=== PATIENT | male | born 1985 | race Caucasian/White ===

== ENCOUNTER 2016-12-18 00:03 | Emergency (ER) | payer OTHER ==
[2016-12-18 00:09] VITALS: BP 140/76; BMI 24.5
--- NOTE | 2016-12-18 00:30 | DR.GENAD ---
HPI - PCP Primary Care Physician: ZACKERY - Complaint/Symptoms Chief Complaint Doctors Comments: RUQ pain radiating to back. Pain 10, aggravated by pressure, sharp Chief Complaint:: RUQ PAIN, N/V, SOMETIMES IT HURTS BETWEEN SHOULDER BLADES . DECREASED APPETIT. BEEN GOING ON FOR ABOUT A MONTH. Self Treatment fo Chief Complaint: TYLENOL - Source History Provided: Patient - Mode of Arrival Mode of Arrival: Ambulatory - Timing Onset of Chief Complaint: 12/18/16 PMH - PMH Past Medical History: Yes Past Medical History: Hypertension Past Medical History Comment: Past Surgical History: Yes Surgical History: Appendectomy - Family History History of Family Medical Conditions: Yes Family Medical History: Diabetes Mellitus, Cancer, [place], Coronary Artery Disease, Hypertension - Social History Does patient currently use any type of tobacco product: No Have you used tobacco products in the last 12 months: No Type of Tobacco Use: None Does any household member use tobacco: No Alcohol Use: None Do you use any recreational Drugs:: No Lives Where: Home - infectious screening Have you traveled outside the country in the last 6 months?: No Isolation: Standard ROS - Review of Systems Eyes: No Symptoms Reported ENTM: No Symptoms Reported Respiratoy: No Symptoms Reported Cardiovascular: No Symptoms Reported Gastrointestinal/Abdominal: No Symptoms Reported Genitourinary: No Symptoms Reported Neurological: No Symptoms Reported Musculoskeletal: No Symptoms Reported Integumentary: No Symptoms Reported Hematologic/Lymphatic: No Symptoms Reported Endocrine: No Symptoms Reported Psychiatric: No Symptoms Reported All Other Systems: Reviewed and Negative PE - Vital Signs Vitals: Temperature 98.0 F Pulse Rate 81 Respiratory Rate 16 Blood Pressure [Left Arm] 110/80 Blood Pressure [Right Arm] 123/43 Blood Pressure 140/76 O2 Sat by Pulse Oximetry 98 - General Limitations: No Limitations General Appearance: Alert, In No Apparent Distress - Head Head Exam: Normal Inspection, Atraumatic - Eyes Eye exam: Normal Appearance, PERRL, EOMI - ENT ENT Exam: Normal Exam External Ear Exam: Normal External Inspection TM/Canal Exam: Bilateral Normal Nose Exam: Normal Nose Exam, Sinus Tenderness Mouth Exam: Normal Inspection, Drooling Throat Exam: Normal Inspection - Neck Neck Exam: Normal Inspection - Chest Chest Inspection: Normal Inspection - Respiratory Respiratory Exam: Normal Lung Sounds Bilat Respiratory Exam: Bilateral Clear to Auscultation - Cardiovascular Cardiovascular Exam: Regular Rate, Normal Rhythm - Abdominal Exam Abdominal Exam: Normal Inspection Abdominal Tenderness: RUQ, RLQ, Diffuse - Extremities Extremities Exam: Normal Inspection - Back Back Exam: Normal Inspection, Full ROM - Neurologic Neurological Exam: Alert, Oriented X3, CN II-XII Intact - Psychiatric Psychiatric Exam: Normal Affect, Normal Mood - Skin Skin Exam: Warm, Dry, Intact Course - Reevaluation 1st: Unchanged ROR - Labs Reviewed Result Diagrams: 12/18/16 00:50 12/18/16 00:50 Laboratory: WBC 9.2 X10^3/uL (3.6-10.0) 12/18/16 00:50 RBC 4.59 X10^6/uL (4.7-6.0) L 12/18/16 00:50 Hgb 14.2 g/dL (13.5-18.0) 12/18/16 00:50 Hct 41.2 % (42.0-54.0) L 12/18/16 00:50 MCV 89.7 fL (80.0-100.0) 12/18/16 00:50 MCH 30.9 pg (27.0-34.0) 12/18/16 00:50 MCHC 34.4 g/dL (33.0-35.0) 12/18/16 00:50 RDW 13.2 % (11.6-16.5) 12/18/16 00:50 Plt Count 253 X10^3/uL (150.0-450.0) 12/18/16 00:50 MPV 8.2 fL (7.4-11.0) 12/18/16 00:50 Neut % 38.7 % (42.0-75.0) L 12/18/16 00:50 Lymph % 48.9 % (21.0-51.0) 12/18/16 00:50 [place] % 9.4 % (0.0-13.0) 12/18/16 00:50 Eos % 2.2 % (0.9-2.9) 12/18/16 00:50 Baso % 0.8 % (0.2-1.0) 12/18/16 00:50 Neut # 3.6 x10^3/uL (2.2-4.8) 12/18/16 00:50 Lymph # 4.5 X10^3/uL (1.3-2.9) H 12/18/16 00:50 [place] # 0.9 x10^3/uL (0.3-0.8) H 12/18/16 00:50 Eos # 0.2 x10^3/uL (0.0-0.2) 12/18/16 00:50 Baso # 0.1 X10^3/uL (0.0-0.1) 12/18/16 00:50 Absolute Nucleated RBC 1.7 /100WBC 12/18/16 00:50 Sodium 141 mmol/L (136-145) 12/18/16 00:50 Corrected Sodium TNP 12/18/16 00:50 Potassium 3.6 mmol/L (3.5-5.1) 12/18/16 00:50 Chloride 107 mmol/L (98-107) 12/18/16 00:50 Carbon Dioxide 23.4 mmol/L (21-32) 12/18/16 00:50 BUN 14 mg/dL (7-18) 12/18/16 00:50 Creatinine 1.14 mg/dL (0.70-1.30) 12/18/16 00:50 Est GFR (MDRD) Af Amer > 60 (>60) 12/18/16 00:50 Est GFR (MDRD) Non-Af > 60 (>60) 12/18/16 00:50 Glucose 110 mg/dL (65-99) H 12/18/16 00:50 Calcium 7.7 mg/dL (8.5-10.1) L 12/18/16 00:50 Corrected Calcium TNP 12/18/16 00:50 Total Bilirubin 0.50 mg/dL (0.2-1.0) 12/18/16 00:50 AST 40 Units/L (15-37) H 12/18/16 00:50 ALT 44 Units/L (12-78) 12/18/16 00:50 Alkaline Phosphatase 80 Units/L (46-116) 12/18/16 00:50 C-Reactive Protein < 0.50 mg/L (0-3.0) 12/18/16 00:50 Total Protein 7.4 g/dL (6.4-8.2) 12/18/16 00:50 Albumin 3.8 g/dL (3.4-5.0) 12/18/16 00:50 Globulin 3.6 g/dL (2.5-4.5) 12/18/16 00:50 Albumin/Globulin Ratio 1.1 Ratio (1.1-2.1) 12/18/16 00:50 Amylase 58 Units/L (25-115) 12/18/16 00:50 Lipase 155 Units/L (73-393) 12/18/16 00:50 - XRAY XRAY Interpreted by: Radiologist (CT Abd/pel: There is intrahepatic ductal and common bile duct dilatation to the level of the pancreatic head. No radiopaque stone or mass is identified. A follow up MRI and MRCP using pancreas protocol could be obtained for further evaluation. There are multiple nonobstructing bilaterla renal calculi.) - Diagnosis Discharge Problem: Intrahepatic bile duct dilation, Bilateral kidney stones - Discharge Plan Condition: Stable - Follow ups/Referrals Follow ups/Referrals: ERIKA VIZCARRA [Primary Care Provider] - 3 days - Instructions
[2016-12-18] MEDS ORDERED: MORPHINE SULFATE INJ 4 MG IVP ONE (00:43)
[2016-12-18] MEDS ORDERED: ZOFRAN INJ 4 MG VIAL IVP ONE (00:45)
[2016-12-18] MEDS ORDERED: NS 1000 ML 1,000 ML ONE (00:46)
[2016-12-18] MEDS ORDERED: MORPHINE SULFATE INJ 4 MG ONE (00:47)
[2016-12-18] MEDS ORDERED: ZOFRAN INJ 4 MG VIAL ONE (00:53)
[2016-12-18 00:58] LABS: EOSINOPHILS # (AUTO) 0.2 x10^3/uL (0.0-0.2)
[2016-12-18] MEDS ORDERED: NS 1000 ML 1,000 ML IV SCH (01:00)
[2016-12-18 01:14] LABS: ALBUMIN 3.8 g/dL (3.4-5.0); ALKALINE PHOSPHATASE 80 Units/L (46-116); BLOOD UREA NITROGEN 14 mg/dL (7-18); C-REACTIVE PROTEIN < 0.50 mg/L (0-3.0); CALCIUM 7.7 mg/dL (8.5-10.1); CARBON DIOXIDE 23.4 mmol/L (21-32); CHLORIDE 107 mmol/L (98-107); CREATININE 1.14 mg/dL (0.70-1.30); GLUCOSE 110 mg/dL (65-99); SODIUM 141 mmol/L (136-145); eGFR BLACK RACES > 60 (>60); eGFR NON BLACK RACES > 60 (>60)
[2016-12-18 01:16] LABS: BASOPHILS # (AUTO) 0.1 X10^3/uL (0.0-0.1); LYMPHOCYTES # (AUTO) 4.5 X10^3/uL (1.3-2.9); MEAN CORPUSCULAR VOLUME 89.7 fL (80.0-100.0); MEAN PLATELET VOLUME 8.2 fL (7.4-11.0); NEUTROPHILS # (AUTO) 3.6 x10^3/uL (2.2-4.8)
[2016-12-18 01:21] LABS: BASOPHILS % (AUTO) 0.8 % (0.2-1.0); EOSINOPHILS % (AUTO) 2.2 % (0.9-2.9); HEMATOCRIT 41.2 % (42.0-54.0); HEMOGLOBIN 14.2 g/dL (13.5-18.0); LYMPHOCYTES % (AUTO) 48.9 % (21.0-51.0); MEAN CORPUSCULAR HEMOGLOBIN 30.9 pg (27.0-34.0); MEAN CORPUSCULAR HGB CONC 34.4 g/dL (33.0-35.0); MONOCYTES # (AUTO) 0.9 x10^3/uL (0.3-0.8); MONOCYTES % (AUTO) 9.4 % (0.0-13.0); NEUTROPHILS % (AUTO) 38.7 % (42.0-75.0); PLATELET COUNT 253 X10^3/uL (150.0-450.0); RED BLOOD COUNT 4.59 X10^6/uL (4.7-6.0); RED CELL DISTRIBUTION WIDTH 13.2 % (11.6-16.5); WHITE BLOOD COUNT 9.2 X10^3/uL (3.6-10.0)
[2016-12-18 01:33] LABS: AMYLASE 58 Units/L (25-115); LIPASE 155 Units/L (73-393)
[2016-12-18 01:39] LABS: ALANINE AMINOTRANSFERASE 44 Units/L (12-78); ASPARTATE AMINO TRANSFERASE 40 Units/L (15-37); TOTAL PROTEIN 7.4 g/dL (6.4-8.2)
[2016-12-18] MEDS ORDERED: DILAUDID INJ IVP ONE (01:44)
[2016-12-18] MEDS ORDERED: DILAUDID INJ ONE (01:45)
[2016-12-18] MEDS ORDERED: NS 100 ML IV 100 ML IV ONE (01:47)
--- NOTE | 2016-12-18 02:21 | CT ---
EXAM: CT ABDOMEN AND PELVIS WITH CONTRAST INDICATION: Abdominal pain COMPARISION: No priors available for comparison TECHNIQUE: Axial CT examination of the abdomen and pelvis was performed with intravenous contrast. The patient received intravenous contrast without adverse reaction. Coronal and sagittal reconstructions were c reated using the axial data. FINDINGS: The lung bases are clear. The liver, spleen, pancreas, hand adrenal glands are normal. There are renuka ateral nonobstructing renal calculi. The gallbladder appears unremarkable. There is dilatation of th e intrahepatic bile ducts and common bile duct to the level of the pancreatic head. The aorta and i nferior vena cava are normal in caliber. The bowel loops are nonobstructed. No abnormal mass, lymphadenopathy, or fluid collection. Urinary bladder is normal. The appendix has been removed. The regional skeleton is intact. IMPRESSION: There is intrahepatic ductal and common bile duct dilatation to the level of the pancreatic head. No radiopaque stone or mass is identified. A followup MRI and MRCP using pancreas protocol could be ob tained for further evaluation. There are multiple nonobstructing bilateral renal calculi. Reported By:
== END 2016-12-18 03:05 | disposition home or self-care (01) ==
LOC: ER 00:03
DX: K83.8 Other specified diseases of biliary tract (principal); N20.0 Calculus of kidney; R10.11 Right upper quadrant pain
CPT/HCPCS: 36415; 74177; 80053; 82150; 83690; 85025; 86140; 96365; 96367; 96374; 96375; 99283; A4222; J2270; J2405

== ENCOUNTER 2017-10-24 00:50 | Observation (INO) ==
[2017-10-24 01:09] LABS: EOSINOPHILS # (AUTO) 0.3 x10^3/uL (0.0-0.2)
[2017-10-24 01:23] LABS: NEUTROPHILS # (AUTO) 4.1 x10^3/uL (2.2-4.8); WHITE BLOOD COUNT 10.5 X10^3/uL (3.6-10.0)
[2017-10-24 01:38] LABS: BASOPHILS # (AUTO) 0.1 X10^3/uL (0.0-0.1); EOSINOPHILS % (AUTO) 2.6 % (0.9-2.9); HEMATOCRIT 42.8 % (42.0-54.0); HEMOGLOBIN 15.4 g/dL (13.5-18.0); LYMPHOCYTES # (AUTO) 5.1 X10^3/uL (1.3-2.9); LYMPHOCYTES % (AUTO) 48.7 % (21.0-51.0); MEAN CORPUSCULAR HEMOGLOBIN 32.4 pg (27.0-34.0); MEAN CORPUSCULAR HGB CONC 35.9 g/dL (33.0-35.0); MEAN CORPUSCULAR VOLUME 90.3 fL (80.0-100.0); MEAN PLATELET VOLUME 8.5 fL (7.4-11.0); MONOCYTES % (AUTO) 9.2 % (0.0-13.0); NEUTROPHILS % (AUTO) 38.5 % (42.0-75.0); PLATELET COUNT 383 X10^3/uL (150.0-450.0); RED BLOOD COUNT 4.74 X10^6/uL (4.7-6.0); RED CELL DISTRIBUTION WIDTH 13.5 % (11.6-16.5)
[2017-10-24] MEDS ORDERED: ZOFRAN INJ 4 MG VIAL ONE (01:39)
[2017-10-24] MEDS ORDERED: PHENERGAN INJ 25 MG IV PRN ×2 (01:39→03:37)
[2017-10-24] MEDS ORDERED: MORPHINE SULFATE INJ 4 MG IVP ONE (01:39)
[2017-10-24] MEDS ORDERED: MORPHINE SULFATE INJ 4 MG ONE (01:42)
--- NOTE | 2017-10-24 01:44 | DR.CP ---
HPI - Time Seen Time seen: 01:00 - PCP Primary Care Physician: ZACKERY - HPI Comment HPI Comment: PAIN ASSOCIATED WITH N/V, WEAKNESS AND SOB. S/L NTG DID NOT RELIEF PAIN. TOOK 2TABS ASA 325MG BEFORE COMING. PATIENT HAVE HAD SEVERAL DIARRHEA STOOL WELL. NO FEVER OR URI SYMPTOMS. HISTORY CARDIAC STENT IN THE PAST. - Complaint Chief Complaint Doctor Comments: CHEST PAIN RADIATING TO LT ARM FOR SEVERAL HOURS. Chief Complaint:: CHEST PAIN, SHORTNESS OF BREATH, LEFT HAND NUMBNESS. O/S 1730 YESTERDAY, HAS TAKEN 5 NITROGLYCERIN AND CHEWED ASPIRIN 325MG. Self Treatment fo Chief Complaint: NITROGLYCERIN 0.4MG SL TIMES 5. ASA 325MG PO (CHEWED). BLOOD PRESSURE MEDS - Reviewed Nurses Notes Review: Yes - Source History Provided: Patient - Mode of Arrival Mode of Arrival: Ambulatory - Timing Onset of Chief Complaint: 10/23/17 Came on: Suddenly Pain: Present Now - Duration Duration: Constant Duration: Hours - Location Location of Chest Pain: Left, Chest Chest Pain Radiation Location: Left Hand - Context Onset: At rest Cardiac Risk Factors: HTN PE Risk Factors: None History of: Similar pain in the past Prehospital Care: SL Nitro, ASA - Quality Quality: Heavy - Severity Severity: Moderate - Modifying Factors Worsens: Nothing Impoves: Nothing - Associated Signs and Symptoms Associated Signs and Symptoms: Shortness of Breath, Other PMH - PMH Past Medical History: Yes Past Medical History: Hypertension Past Surgical History: Yes Surgical History: Appendectomy - Family History History of Family Medical Conditions: Yes Family Medical History: Diabetes Mellitus, Cancer, [place], Coronary Artery Disease, Hypertension - Social History Does patient currently use any type of tobacco product: No Have you used tobacco products in the last 12 months: No Type of Tobacco Use: None Does any household member use tobacco: No Alcohol Use: None Do you use any recreational Drugs:: No Lives With: Alone Lives Where: Home - infectious screening Have you traveled outside the country in the last 6 months?: No Isolation: Standard ROS - Review of Systems Constitutional: Weakness, Fatigue. negative: Chills, Fever Eyes: No Symptoms Reported. negative: Eye Pain, Discharge ENTM: No Symptoms Reported. negative: Ear Pain, Nose Discharge, Nose Congestion , Throat Pain Respiratoy: Short of Breath. negative: Productive Cough, Non-Productive Cough, Wheezing, Hemoptysis Cardiovascular: Chest Pain Gastrointestinal/Abdominal: Abdominal Pain, Diarrhea, Nausea, Vomiting Genitourinary: negative: Dysuria, Frequency, Hematuria Neurological: Weakness, Dizziness Musculoskeletal: Muscle Pain Integumentary: No Symptoms Reported Hematologic/Lymphatic: No Symptoms Reported Endocrine: No Symptoms Reported All Other Systems: Reviewed and Negative PE - General Limitations: No Limitations General Appearance: Alert - Head Head Exam: Normal Inspection - Eyes Eye exam: Normal Appearance - ENT ENT Exam: Normal External Ear Exam - Chest Chest Inspection: Symmetric Chest Wall Rise - Respiratory Respiratory Exam: Normal Lung Sounds Bilat Respiratory Exam: Bilateral Clear to Auscultation - Cardiovascular Cardiovascular Exam: Regular Rate, Normal Rhythm, Normal Heart Sounds Pulse: Normal, Radial, Femoral Edema: Normal - Abdominal Exam Abdominal Exam: Normal Bowel Sounds, Soft. negative: Tenderness - Extremities Extremities Exam: Normal Inspection - Back Back Exam: Normal Inspection - Neurologic Neurological Exam: Alert, Oriented X3 - Psychiatric Psychiatric Exam: Normal Affect, Normal Mood - Skin Skin Exam: Normal Color - Vitals Vitals: Pulse Rate [Apical] 87 Pulse Rate 89 Respiratory Rate 24 Blood Pressure [Left Arm] 110/80 Blood Pressure [Right Arm] 123/90 Blood Pressure 125/92 O2 Sat by Pulse Oximetry 98 MDM - Differential Diagnosis Differential Diagnosis: Angina, Cholelithasis, CHF, Costochondritis, Esophageal Reflux/Spasm, Gastritis, Myocardial Infarction, Pericarditis, Pleuritis, Pancreatitis, Pneumonia, Pneumothorax Course - Treatment Treatment: SEE ORDERS. IV MORPHIN AND PHENERGAN IN ED. - Reevaluation 1st: Improved (PAIN DECREASING.) - Education/Counseling Education/Counseling: Patient, Education Educated On: Diagnosis, Needs for Follow Up ROR - Labs Reviewed Result Diagrams: 10/24/17 01:15 10/24/17 01:15 - XRAY XRAY Interpreted by: Radiologist XRAY Findings: REPORT DISCUSS WITH PATIENT. - EKG Rhythm: NSR (EKG NOTED.) - Labs Reviewed Laboratory: WBC 10.5 X10^3/uL (3.6-10.0) H 10/24/17 01:15 RBC 4.74 X10^6/uL (4.7-6.0) 10/24/17 01:15 Hgb 15.4 g/dL (13.5-18.0) 10/24/17 01:15 Hct 42.8 % (42.0-54.0) 10/24/17 01:15 MCV 90.3 fL (80.0-100.0) 10/24/17 01:15 MCH 32.4 pg (27.0-34.0) 10/24/17 01:15 MCHC 35.9 g/dL (33.0-35.0) H 10/24/17 01:15 RDW 13.5 % (11.6-16.5) 10/24/17 01:15 Plt Count 383 X10^3/uL (150.0-450.0) 10/24/17 01:15 MPV 8.5 fL (7.4-11.0) 10/24/17 01:15 Neut % (Auto) 38.5 % (42.0-75.0) L 10/24/17 01:15 Lymph % (Auto) 48.7 % (21.0-51.0) 10/24/17 01:15 [place] % (Auto) 9.2 % (0.0-13.0) 10/24/17 01:15 Eos % (Auto) 2.6 % (0.9-2.9) 10/24/17 01:15 Baso % (Auto) 1.0 % (0.2-1.0) 10/24/17 01:15 Neut # (Auto) 4.1 x10^3/uL (2.2-4.8) 10/24/17 01:15 Lymph # (Auto) 5.1 X10^3/uL (1.3-2.9) H 10/24/17 01:15 [place] # (Auto) 1.0 x10^3/uL (0.3-0.8) H 10/24/17 01:15 Eos # (Auto) 0.3 x10^3/uL (0.0-0.2) H 10/24/17 01:15 Baso # (Auto) 0.1 X10^3/uL (0.0-0.1) 10/24/17 01:15 Absolute Nucleated RBC 0.3 /100WBC 10/24/17 01:15 INR Target Range - 10/24/17 01:15 INR 0.85 (0.8-1.3) 10/24/17 01:15 APTT 31.0 SECONDS (22.9-36.5) 10/24/17 01:15 PTT Comment - 10/24/17 01:15 H. pylori IgG Antibody Negative (NEGATIVE) 10/24/17 01:15 - Diagnosis Discharge Problem: Chest pain Qualifiers: Chest pain type: precordial pain Qualified Code(s): R07.2 - Precordial pain Abdominal pain Qualifiers: Abdominal location: generalized Qualified Code(s): R10.84 - Generalized abdominal pain - Discharge Plan Condition: Stable
[2017-10-24] MEDS: NS 1000 ML 1,000 ML IV SCH ×3 (01:53→17:44)
[2017-10-24 02:48] LABS: CHLORIDE 99 mmol/L (98-107); SODIUM 133 mmol/L (136-145)
[2017-10-24 02:49] LABS: BLOOD UREA NITROGEN 11 mg/dL (7-18); CARBON DIOXIDE 12.4 mmol/L (21-32)
[2017-10-24 02:50] LABS: COR NA(FOR HYPERGLY) 136 mmol/L (136-145)
[2017-10-24 02:51] LABS: ASPARTATE AMINO TRANSFERASE 90 Units/L (15-37)
[2017-10-24 02:53] LABS: ALKALINE PHOSPHATASE 135 Units/L (46-116)
[2017-10-24 02:54] LABS: MAGNESIUM 1.7 mg/dL (1.7-2.9)
[2017-10-24 02:55] LABS: CREATINE KINASE MB 0.5 ng/mL (0-4.0); TROPONIN I 0.19 ng/mL (0-1.5)
--- NOTE | 2017-10-24 03:04 | RAD ---
Chest portable Indication: Chest pain Comparison July 08, 2016 Findings: There is minimal left base atelectasis and/or developing bronchitis changes. There is no ve nous congestion obvious effusion or pneumothorax. The heart and mediastinum remain normal. The skelet on is intact. Impression: Minimal left base airspace changes described above. Reported By:
--- NOTE | 2017-10-24 03:38 | CT ---
CT abdomen pelvis without contrast Indication: Abdominal pain and chest pain Findings: Comparison December 18, 2016 the lung bases and cardiac chambers are normal. There is fatty a ppearing liver. The gallbladder pancreas and spleen are negative. Bilateral kidneys demonstrate nonob structing calculi. The ureters are patent. The urinary bladder is clear. The small and large bowel ar e unremarkable. There is mild stool retained throughout the colon. The retroperitoneum and lower pelv ic recess are clear. The urinary bladder is nondistended. The skeleton and vascular structures are no rmal. Impression: 1. Nonobstructive bilateral renal calculi. 2. Mild fatty changes of the liver Reported By:
[2017-10-24 03:53] LABS: ALANINE AMINOTRANSFERASE 54 Units/L (12-78); CALCIUM 8.6 mg/dL (8.5-10.1); CKMB % 0.8 % (<4); CREATINE KINASE 62.4 Units/L (39-308); CREATININE 0.91 mg/dL (0.70-1.30); TOTAL PROTEIN 6.8 g/dL (6.4-8.2); eGFR NON BLACK RACES > 60 (>60)
[2017-10-24 03:59] LABS: ALBUMIN 4.1 g/dL (3.4-5.0)
[2017-10-24] MEDS: NITRO-BID OINT 2% Multi-Dose tube TD SCH ×4 (04:03→21:55)
[2017-10-24] MEDS: MORPHINE SULFATE INJ 4 MG IVP PRN ×5 (04:04→21:45)
[2017-10-24 04:21] VITALS: BMI 26.4
[2017-10-24 07:43] LABS: CKMB % 1.9 % (<4); CREATINE KINASE 54 Units/L (39-308); CREATINE KINASE MB < 1.0 ng/mL (0-4.0); TROPONIN I < 0.02 ng/mL (0-1.5)
[2017-10-24] MEDS ORDERED: TOPROL XL PO ONE ×2 (08:14→20:32)
[2017-10-24] MEDS: TOPROL XL PO SCH ×2 (08:45→20:55)
[2017-10-24] MEDS ORDERED: METOPROLOL SUCCINATE 200 MG PO SCH (09:00)
[2017-10-24] MEDS: NORCO 7.5/325 MG TAB PO PRN (10:57)
[2017-10-24] MEDS ORDERED: NORVASC TAB 2.5 MG ONE (11:05)
[2017-10-24] MEDS: NORVASC TAB 2.5 MG PO SCH (11:14)
[2017-10-24] MEDS: ECOTRIN TAB 325 MG PO SCH (11:14)
[2017-10-24 13:45] LABS: CREATINE KINASE 50 Units/L (39-308); CREATINE KINASE MB < 1.0 ng/mL (0-4.0); TROPONIN I < 0.02 ng/mL (0-1.5)
[2017-10-24] MEDS: TORADOL 30 MG VIAL IVP SCH ×2 (15:28→20:56)
[2017-10-24 18:19] LABS: CKMB % 1.9 % (<4); CREATINE KINASE 53 Units/L (39-308); CREATINE KINASE MB < 1.0 ng/mL (0-4.0); TROPONIN I < 0.02 ng/mL (0-1.5)
[2017-10-24] MEDS ORDERED: CRESTOR TAB 10 MG PO SCH (21:00)
[2017-10-24 21:17] LABS: CKMB % 1.8 % (<4); CREATINE KINASE 57 Units/L (39-308); CREATINE KINASE MB < 1.0 ng/mL (0-4.0); TROPONIN I < 0.02 ng/mL (0-1.5)
[2017-10-24] MEDS ORDERED: NITRO-BID OINT 2% UD (E.R. USE ONLY) ONE (21:32)
--- NOTE | 2017-10-24 22:20 | DR.H&P ---
H&P - History & Physical for Day of: H&P Date: 10/24/17 - Chief Complaint Chief Complaint: CHEST PAIN - History of Present Illness History of Present Illness: IS A 32 YEAR OLD PATIENT OF OURS WHO PRESENTED TO THE EMERGENCY ROOM WITH COMPLAINTS OF CHEST PAIN THAT RADIATES TO THE LEFT ARM. HE REPORTS THAT PAIN STARTED SEVERAL HOURS AGO. ASSOCIATED SYMPTOMS INCLUDE SHORTNESS OF BREATH, LEFT HAND NUMBNESS, NAUSEA, VOMITING, WEAKNESS, AND DIARRHEA. HE DENIES FEVER OR URI SYMPTOMS. HE REPORTS TAKING NITROGLYCERIN 0.4MG SL X 5 AND ASA 325MG PO X 1 WITH NO RELIEF OF PAIN. ON ARRIVAL, VITALS WERE 97.7-85-18-96%-135/59. LABS WERE OBTAINED. ABNORMAL LAB VALUES INCLUDE THE FOLLOWING: WBC 10.5, SODIUM 133, CARBON DIOXIDE 12.4, GLUCOSE 207, AST 90, ALK PHOSPHATASE 135. CARDIAC ENZYMES WITHIN NORMAL LIMITS. CHEST XRAY OBTAINED AND REVEALED MINIMAL LEFT BASE AIRSPACE CHANGES. AN ABD/ PELVIS CT WITHOUT CONTRAST OBTAINED AND REVEALED: Nonobstructive bilateral renal calculi. Mild fatty changes of the liver. EKG REVEALED SINUS RHYTHM WITH HR 86. ST ELEVATION, PROBABLE NORMAL EARLY REPOL PATTERN. HE WAS GIVEN MORPHINE 4MG IV X 1 DOSE AND PHENERGAN 12.5MG X 1 DOSE IN THE ER WITH NO IMPROVEMENT IN SYMPTOMS. HE WAS ADMITTED FOR FURTHER EVALUATION AND TREATMENT. WE PLAN TO OBTAIN SERIAL CARDIAC ENZYMES AND EKGS. OTHERWISE, WE WILL FOLLOW UP WITH AM LABS AND CONTINUE TO MONITOR PATIENT. 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) - Past Surgical History Surgical History: Appendectomy Additional Surgical History: Hernia Repair - Family History Family Medical History: Diabetes Mellitus, Cancer, [place], Coronary Artery Disease, Hypertension - Social History Does patient currently use any type of tobacco product: No Have you used tobacco products in the last 12 months: No Type of Tobacco Use: None Does any household member use tobacco: No Alcohol Use: None Drug Use: None - Medications Home Medications: No Known Drug Allergies Allergy (Verified 10/24/17 01:02) CONTINUE taking the following medications metoprolol succinate 200 mg PO BID 10/24/17 [History] - Review of Systems Constitutional: Weakness Eyes: No Symptoms Reported ENT: No Symptoms Reported Respiratory: Shortness of Breath Cardiovascular: Chest Pain Gastrointestinal: Nausea, Vomiting, Abdominal Pain, Diarrhea Genitourinary: No Symptoms Reported Musculoskeletal: No Symptoms Reported Skin: No Symptoms Reported Neurological: Weakness - Physical Exam Vital Signs: Temperature 97.9 F Pulse Rate [Apical] 75 Pulse Rate 89 Respiratory Rate 18 Blood Pressure [Left Arm] 110/80 Blood Pressure [Right Arm] 100/55 Blood Pressure 125/92 O2 Sat by Pulse Oximetry 2 Oriented: Normal Eyes: Normal Ear: Normal Nose: Normal Throat: Normal Respiratory: Diminished Throughout Cardiovascular: Normal. negative: S3, S4, Murmur, Edema : Normal Auscultation: Bowel Sounds: Normal Palpation: Normal Tenderness: Diffuse, Mild. negative: Rebound, Guarding, Rigidity Skin: Normal Musculoskeletal: Normal Psychiatric: Normal Mood Description: Calm Affect: Normal Speech Pattern: Clear - Assessment/Plan (1) Chest pain, rule out acute myocardial infarction Status: Acute Plan: SERIAL CARDIAC ENZYMES AND EKG, TELEMETRY, MORPHIN 4MG IV Q4H PRN, NITRO PASTE Q6H, CONTINUE TO MONITOR - Allergies Allergies/Adverse Reactions: Allergies Allergy/AdvReac Type Severity Reaction Status Date / Time No Known Drug Allergies Allergy Verified 10/24/17 01:02
[2017-10-25 02:04] LABS: CKMB % 1.8 % (<4); CREATINE KINASE 55 Units/L (39-308); CREATINE KINASE MB < 1.0 ng/mL (0-4.0); TROPONIN I < 0.02 ng/mL (0-1.5)
[2017-10-25] MEDS: NS 1000 ML 1,000 ML IV SCH ×2 (02:28→10:47)
[2017-10-25] MEDS: NITRO-BID OINT 2% Multi-Dose tube TD SCH ×2 (02:28→09:49)
[2017-10-25] MEDS: TORADOL 30 MG VIAL IVP SCH ×2 (02:29→09:23)
[2017-10-25] MEDS ORDERED: NITRO-BID OINT 2% UD (E.R. USE ONLY) ONE (02:29)
[2017-10-25] MEDS: MORPHINE SULFATE INJ 4 MG IVP PRN ×2 (06:00→11:09)
[2017-10-25 06:38] LABS: BASOPHILS # (AUTO) 0.1 X10^3/uL (0.0-0.1); BASOPHILS % (AUTO) 0.7 % (0.2-1.0); EOSINOPHILS # (AUTO) 0.2 x10^3/uL (0.0-0.2); HEMATOCRIT 36.7 % (42.0-54.0); HEMOGLOBIN 13.2 g/dL (13.5-18.0); LYMPHOCYTES # (AUTO) 3.4 X10^3/uL (1.3-2.9); LYMPHOCYTES % (AUTO) 28.7 % (21.0-51.0); MEAN CORPUSCULAR HEMOGLOBIN 32.1 pg (27.0-34.0); MEAN CORPUSCULAR HGB CONC 35.9 g/dL (33.0-35.0); MEAN CORPUSCULAR VOLUME 89.5 fL (80.0-100.0); MEAN PLATELET VOLUME 8.6 fL (7.4-11.0); MONOCYTES # (AUTO) 1.4 x10^3/uL (0.3-0.8); MONOCYTES % (AUTO) 11.3 % (0.0-13.0); NEUTROPHILS # (AUTO) 6.8 x10^3/uL (2.2-4.8); NEUTROPHILS % (AUTO) 57.3 % (42.0-75.0); PLATELET COUNT 270 X10^3/uL (150.0-450.0); RED CELL DISTRIBUTION WIDTH 13.3 % (11.6-16.5); WHITE BLOOD COUNT 11.9 X10^3/uL (3.6-10.0)
[2017-10-25 07:07] LABS: ALANINE AMINOTRANSFERASE 46 Units/L (12-78); ALBUMIN 3.2 g/dL (3.4-5.0); ALKALINE PHOSPHATASE 68 Units/L (46-116); BLOOD UREA NITROGEN 9 mg/dL (7-18); CALCIUM 8.2 mg/dL (8.5-10.1); CHLORIDE 103 mmol/L (98-107); CHOL/HDL RATIO 13.5 (0.0-5.0); CHOLESTEROL 230 mg/dL (0-200); COR CA(FOR HYPOALB) 8.8 mg/dL (8.5-10.1); COR NA(FOR HYPERGLY) 136 mmol/L (136-145); CREATININE 0.75 mg/dL (0.70-1.30); HDL CHOLESTEROL 17 mg/dL (40-60); SODIUM 136 mmol/L (136-145); TOTAL PROTEIN 6.8 g/dL (6.4-8.2); eGFR NON BLACK RACES > 60 (>60)
[2017-10-25 07:21] LABS: ASPARTATE AMINO TRANSFERASE 29 Units/L (15-37)
[2017-10-25 07:30] LABS: TRIGLYCERIDES 1544 mg/dL (0-150)
[2017-10-25 08:25] VITALS: BP 128/60
--- NOTE | 2017-10-25 08:41 | RAD ---
HISTORY: Chest pain. Shortness of breath. Study: AP portable chest Comparison: 10/24/2017 Findings: The lungs are clear. The heart size is normal. No acute bony abnormalities are identified. IMPRESSION: 1. No radiographic evidence of acute cardiopulmonary disease. The minimal subsegmental atelectasis in the left lung base has resolved. Reported By:
[2017-10-25] MEDS: NORCO 7.5/325 MG TAB PO PRN (08:56)
[2017-10-25] MEDS ORDERED: LEVAQUIN PREMIX IV 750 MG 750 MG/150 ML BAG IV SCH (09:00)
[2017-10-25] MEDS ORDERED: NORVASC TAB 2.5 MG ONE (09:19)
[2017-10-25] MEDS ORDERED: TOPROL XL PO ONE (09:20)
[2017-10-25] MEDS: NORVASC TAB 2.5 MG PO SCH (09:23)
[2017-10-25] MEDS: TOPROL XL PO SCH (09:23)
[2017-10-25] MEDS: ECOTRIN TAB 325 MG PO SCH (09:23)
--- NOTE | 2017-11-19 14:24 | DR.CARTERD ---
- Discharge Summary for: Discharge Summary for Date of:: 10/25/17 - Admission Date Date of Admission: 10/24/17 - Admission Diagnoses Admission Diagnosis: (1) Chest pain, rule out acute myocardial infarction (2) Shortness of breath (3) Nausea (4) Left hand numbness - Discharge Date Discharge Date: 10/25/17 - Discharge Diagnoses Discharge Diagnosis: (1) Chest pain, rule out acute myocardial infarction (2) Shortness of breath (3) Nausea (4) Left hand numbness - Hospital Course Hospital Course: DAY ONE, MR. MANE IS A 32 YEAR OLD PATIENT OF OURS WHO PRESENTED TO THE EMERGENCY ROOM WITH COMPLAINTS OF CHEST PAIN THAT RADIATED TO THE LEFT ARM. HE REPORTED THAT PAIN STARTED SEVERAL HOURS PRIOR. ASSOCIATED SYMPTOMS INCLUDED SHORTNESS OF BREATH, LEFT HAND NUMBNESS, NAUSEA, VOMITING, WEAKNESS, AND DIARRHEA. HE DENIED FEVER OR URI SYMPTOMS. HE REPORTED TAKING NITROGLYCERIN 0.4MG SL X 5 AND ASA 325MG PO X 1 WITH NO RELIEF OF PAIN. ON ARRIVAL, VITALS WERE 97.7-85-18-96%-135/59. LABS WERE OBTAINED. ABNORMAL LAB VALUES INCLUDED THE FOLLOWING: WBC 10.5, SODIUM 133, CARBON DIOXIDE 12.4, GLUCOSE 207, AST 90, ALK PHOSPHATASE 135. CARDIAC ENZYMES WITHIN NORMAL LIMITS. CHEST XRAY OBTAINED AND REVEALED MINIMAL LEFT BASE AIRSPACE CHANGES. AN ABD/PELVIS CT WITHOUT CONTRAST OBTAINED AND REVEALED: NONOBSTRUCTIVE BILATERAL RENAL CALCULI; MILD FATTY CHANGES OF THE LIVER. EKG REVEALED SINUS RHYTHM WITH HR 86, ST ELEVATION, PROBABLE NORMAL EARLY REPOL PATTERN. HE WAS GIVEN MORPHINE 4MG IV X 1 DOSE AND PHENERGAN 12.5MG X 1 DOSE IN THE ER WITH NO IMPROVEMENT IN SYMPTOMS. HE WAS ADMITTED FOR FURTHER EVALUATION AND TREATMENT. 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 ON DAY TWO, PATIENT REPORTED HE WAS FEELING BETTER. HE DENIED CHEST PAIN OR SHORTNESS OF BREATH. A FASTING LIPID PANEL REPORTED: TRIGLYCERIDES 1544, CHOLESTEROL 230, LDL CHOL -96, HDL CHOL 17, CHOL/HDL RATIO 13.5. VITAL SIGNS STABLE. LABS WNL. CARDIAC ENZYMES AND EKG'S WERE NORMAL. WE PLANNED FOR DISCHARGE. INSTRUCTIONS FOR MEDICATIONS AND FOLLOW UP WERE DISCUSSED WITH PATIENT AND FAMILY, BOTH VOICED UNDERSTANDING. PATIENT DISCHARGED HOME IN STABLE CONDITION WITH FAMILY. - Discharge Medications Discharge Medications: Home Medication List metoprolol succinate 200 mg PO BID 10/24/17 [History] amlodipine 2.5 mg PO DAILY #30 tab 10/25/17 [Rx] amoxicillin-pot clavulanate [Augmentin] 1 tab PO BID #20 tab 10/25/17 [Rx] aspirin 325 mg PO DAILY #90 tab 10/25/17 [Rx] fenofibric acid (choline) [Trilipix] 135 mg PO HS #30 cap 10/25/17 [Rx] rosuvastatin [Crestor] 20 mg PO HS #30 tab 10/25/17 [Rx] Prescriptions: amlodipine Juan Diego Casarez amoxicillin-pot clavulanate [Augmentin] Juan Diego Casarez aspirin Juan Diego Casarez fenofibric acid (choline) [Trilipix] Juan Diego Casarez rosuvastatin [Crestor] Juan Diego Casarez - Discharge Disposition Discharge Disposition: PATIENT IS TO FOLLOW UP IN OUR OFFICE IN ONE WEEK.
== END 2017-10-25 11:30 | disposition home or self-care (01) ==
LOC: MED/SURG 00:50 → ER 00:50 → MED/SURG 03:38
PROVIDERS: ADMIT Internal Medicine; ATTEND Internal Medicine
DX: R07.2 Precordial pain; I10 Essential (primary) hypertension; R53.1 Weakness; R11.2 Nausea with vomiting, unspecified; N20.0 Calculus of kidney; R19.7 Diarrhea, unspecified; R10.84 Generalized abdominal pain; F41.8 Other specified anxiety disorders; R20.0 Anesthesia of skin; R06.02 Shortness of breath; M79.602 Pain in left arm; D64.89 Other specified anemias
CPT/HCPCS: 36415; 71010; 71045; 74176; 80053; 80061; 82550; 82553; 83036; 83735; 84484; 85025; 85610; 85730; 86677; 93005; 93010; 94760; 96365; 96367; 96374; 96375; 99284; A4216; A4222; G0378; J1885; J1956; J2270; J2405; J2550; J7030